=== PATIENT | female | born 1960 | race Caucasian/White ===

== ENCOUNTER 2016-04-25 09:57 | Day surgery (SDC) | payer OTHER ==
[~2016-04-25] VITALS: Ht 165.1 cm; Wt 81.0 kg
[2016-04-25] VITALS (9 sets, daily range): BP systolic 120–138; BP diastolic 43–70; PULSE 69–99; RESP 15–24; O2SAT 94–99
[~2016-04-25 09:57] MED LIST: DOCU250C2 PO; IBUP-1827 PO; Lactated Ringer's 1,000 ML IV SCH; OXYC5TAB72 PO
[2016-04-25] MEDS ORDERED: fentaNYL-PF 50 mCg/mL 2 mL Inj ONE (09:58)
[2016-04-25] MEDS ORDERED: Propofol 10,000 mCg/mL 20 mL Inj ONE (09:58)
[2016-04-25] MEDS ORDERED: Ondansetron 2 mg/mL 2 mL Inj ONE (09:58)
[2016-04-25] MEDS ORDERED: EPHEDrine/NS 5 mg/mL 5 mL Syringe ONE (09:58)
[2016-04-25] MEDS ORDERED: Dexamethasone 4 mg/mL Inj ONE (09:58)
[2016-04-25] MEDS ORDERED: Lactated Ringer's 1,000 ML IV ONE (10:49)
--- NOTE | 2016-04-25 11:29 | PCM.HPANE ---
Patient Data Date of Service: Apr 25, 2016 Surgeon Admitting Provider: Attending Provider:Hilary Phillips MD Primary Care Physician:Britney Avalos MD Other Provider:Teresa Mckay Anesthesia Reason for Visit Anal Fistula Ht/WT & BMI Height (Feet): 5 Height (Inches): 5.00 Weight (Kilograms): 80.966 Body Mass Index 29.00 Allergies Coded Allergies: Sulfa (Sulfonamide Antibiotics) (Verified Allergy, Severe, FACIAL SWELLING , 04/23/16) Past Anesthesia History Anesthesia History: Denies:: Abnormal Airway (S/P JAW RPR), Anesthesia Reactions, Malignant Hyperthermia Diabetes History Hx Diabetes?: No MRSA MRSA: No Medications Home Meds Incl Beta Delvis: No Active Scripts Docusate Sodium 250 Mg [id number] Mg PO BID PRN For Constipation #60 CAPSULE Ref 0 Prov:Marito Pan MD 04/02/16 oxyCODONE 5 Mg Tablet5 Mg PO Q4H PRN For Moderate Pain #60 TABLET Prov:Marito Pan MD 04/02/16 Reported Medications Ibuprofen 600 Mg [id number] Mg PO QID PRN For Pain Ref 0 04/01/16 Discontinued Scripts Amoxicillin/Clav K 875-125 mg (Augmentin 875-125 mg)1 Each Tablet1 Tablet PO BID 5 Days Ref 10 Prov:Marito Pan MD 04/02/16 History History of ENT Problems?: Yes HEENT History: Denies:: Abnormal Airway (S/P JAW RPR) Hx of Heart Problems?: No Cardiovascular History: Denies:: Heart Murmur Hypertension Hx of Respiratory Problem?: No Respiratory History: Denies:: Use of C-PAP Machine Hx Neurologic Problems?: Yes Neurological History: Positive for:: Headaches Hx of GI Problems?: Yes Gastrointestinal History: Positive for:: 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 Pressure Ulcers Hx Musculoskeletal Problems?: Yes Hx of Psycho/Social Problems?: No Hx Surgeries?: Yes (hernia as , carpal tunnel, trigger finger, jaw reset, I&D PERIRECTAL A) Hx Any Other Health Problems?: No Other History: Positive for:: Hospitalization (OBSV FOR PERIRECTAL ABCESS) Denies:: Cancer Endocrine Disease Thyroid Disease History Blood Transfusions: Denies:: Blood Transfuse Reaction Blood Transfusions Hx Diabetes: No Hx Alcohol Use: Yes (OCCAS)Hx Substance Use: No Smoking Status: Never Smoker Have You Smoked inLast 12 mo: No Stop/Bang S-Snoring: Do You Snore Loudly: No T-Tired: feel tired, fatigued: No O-Obsered: Observed not breath: No P-Blood Pressure: treated: No B- Body Mass Index > 35 kg/m2: No A- Age over 50: Yes N- Neck Large Circumference: No G- Gender Male: No LAZ Total Score: 1 LAZ Risk Assessment: Low Risk, <3 Yes Risk Assessment Category Category 1A: Patient has history of documented sleep apnea, and HAS NOT received any narcotic, sedative or anesthesia administration during this stay. Category 1B: Patient has history of documented sleep apnea, and HAS received any narcotic , sedative or anesthesia administration during this stay Category 2: Patient has SUSPECTED Obstructive Sleep Apnea, and HAS received any narcotic , sedative or anesthesia administration during this stay. Category 3: Patient has SUSPECTED Obstructive Sleep Apnea and HAS NOT received narcotic, sedative or anesthesia administration during this stay. Category 4: Outpatient in Procedural Areas with known sleep apnea or who screen positive for High Risk via the STOP/BANG questionnaire. Exam Exam Vital Signs Vital Signs Date Time Temp Pulse Resp B/P Pulse Ox O2 Delivery O2 Flow Rate FiO2 04/25/16 10:27 37.2 69 17 121/70 99 Room Air General Appearance: Alert, Oriented X3, Cooperative, No Acute Distress HEENT/AIRWAY: MP 2 Lungs: Clear to Auscultation, Normal Air Movement Heart: Exam Unremarkable, Regular Rate/Rhythm, No Murmurs/Rubs/Gallops Meds/Labs/Diagnostics Admission Meds Current Medications Lactated Ringer's (Lr) 1,000 ml @ ud STK-MED ONCE IV Last administered on 04/25t 10:49; Start 04/25/16 at 10:49; Stop 04/25/16 at 10:50; Status DC Plan Impression Patient chart reviewed, patient interviewed and anesthestic plan with risks, benefits, and alternatives discussed, and informed consent obtained. NPO Status: 04/24@1930, water f& black coffee @0600 ASA Physical Status: ASA2 Mod Systemic Disease Anesthetic Plan: GA Bene/Risks/Altern/Consents: Yes HP Complete Prior to Induction: Yes Leif Mendieta MD Apr 25, 2016 11:29
[2016-04-25] MEDS ORDERED: Lactated Ringer's 1,000 ML IV SCH (12:11)
[2016-04-25] MEDS ORDERED: HYDROmorphone 1 mg/mL Inj IVPUSH PRN (12:15)
[2016-04-25] MEDS ORDERED: hydrALAZINE 20 mg/mL Inj IVPUSH PRN (12:15)
[2016-04-25] MEDS ORDERED: MetoCLOpramide 5 mg/mL 2 mL Inj IVPUSH PRN (12:15)
[2016-04-25] MEDS ORDERED: Ondansetron 2 mg/mL 2 mL Inj IVPUSH PRN (12:15)
[2016-04-25] MEDS ORDERED: Phenylephrine 10,000 mCg/mL Inj IVPUSH PRN (12:15)
[2016-04-25] MEDS ORDERED: Atropine 0.4 mg/mL Inj IVPUSH PRN (12:15)
[2016-04-25] MEDS ORDERED: EPHEDrine Sulfate 50 mg/mL Inj IVPUSH PRN (12:15)
[2016-04-25] MEDS ORDERED: Labetalol 5 mg/mL 4 mL Inj IV PRN (12:15)
[2016-04-25] MEDS ORDERED: Bupivacaine Liposome 1.3% 20 mL Inj ONE (12:36)
[2016-04-25] MEDS ORDERED: Bupivacaine Liposome 1.3% 20 mL Inj INFILTRATE ONE (12:39)
[2016-04-25] MEDS ORDERED: Bupivacaine-MPF 0.5% W/EPI 30 mL Inj INFILTRATE ONE (12:40)
--- NOTE | 2016-04-25 12:51 | PCM.ANEP1 ---
Post Anesthesia Phase 1 PACU Phase 1 Assessment Date of Service: Apr 25, 2016 Vital Signs 36.7 138/47 96 13 99% RA Anesthetic Administered: GA Level of Alertness: Awake, talking MATOS's with Equal Strength: Yes Pain: No Nausea or Vomiting: No Oxygen Delivery: Room Air Lungs: Clear to Auscultation, Normal Air Movement Leif Mendieta MD Apr 25, 2016 12:50
[2016-04-25] MEDS ORDERED: oxyCODONE-Acetamin 5-325 mg Tablet PO PRN (12:55)
--- NOTE | 2016-04-25 13:03 | PCM.SURGOP ---
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 Examination under anesthesia 2. Incision and drainage of complex horseshoe ischiorectal abscess 3. Non-cutting seton placement Surgeon and Paving Crew Foreman: Surgeon: Hilary Phillips M.D. Assistants: Yulisa Gonzalez PA-C; Rosalinda Dexter MS 3 Indication for Procedure This is a 55-year-old woman who presented with a perirectal abscess back in March. She underwent incision and drainage in the operating room at that time. It recurred and progressed to a fistula in ano, with ongoing purulent drainage. Therefore examination under anesthesia was indicated. Findings: At the left posterolateral position was a 0.5 cm opening with some hypergranulation tissue to a large cavity, approximately 12 cm in depth as measured by a lacrimal duct probe, with a connection to the posterior rectal canal, 2 cm proximal to the dentate line. The cavity extended to approximately 1 cm across the midline. Procedure Details The patient was brought to the operating room placed in supine position. General anesthesia was induced. A warming blanket was placed. She was repositioned into high lithotomy position. The operative field was prepped and draped in sterile fashion. The presurgical checklist was used to confirm the correct patient, procedure, site, and side. A digital rectal examination was performed. At the posterior position, 2 cm proximal to the dentate line was opening to an abscess cavity, and 2 cm from the dentate line on the perianal skin was not opening to it as well, confirming the presence of a fistula. This was probed with a lacrimal duct probe. The abscess cavity extended to 1 cm across the midline to the right side. With respect to the sphincter complex and levators, it was in an ischiorectal position. There is very minimal pus as the patient has had ongoing purulent drainage. Hydrogen peroxide was used to confirm the connection between the rectal mucosa and the skin. The lacrimal duct probe was used to find the connection to the rectal canal, and a silk tie was tied to it and brought through. A vessel loop was tied to this and the silk was pulled out. The tonsil loop was then tied to itself to create a noncutting seton. The perianal skin opening was opened to a length of 1.5 cm to facilitate drainage. Hemostasis was achieved. 30 mL of half percent Marcaine were injected, followed by 20 mL of liposomal bupivacaine, for postoperative analgesia An ABD pad was placed. The patient was awakened from general anesthesia and taken to the postoperative care unit in good condition. Complications There were no periprocedural complications identified. Surgical Specimen Removed: No Specimen sent to Pathology: No Anesthetic Plan: GA Grafts, Implants: None Output, Estimated Blood Loss: 0 (ml) Blood Administration during cabrera: No Hilary Phillips MD Apr 25, 2016 13:03
[2016-04-25] MEDS: fentaNYL-PF 50 mCg/mL 2 mL Inj IVPUSH PRN ×2 (13:13→13:20)
[2016-04-25] MEDS: Lactated Ringer's 500 ML IV PRN ×2 (13:24→13:26)
--- NOTE | 2016-04-25 14:43 | PCM.ANEP2 ---
Post Anesthesia Evaluation ASA/CMS Post Anesthesia Date of Service: Apr 25, 2016 VS in Patient's Normal Range?: Yes Resp Stable; Airway Patent?: Yes CV Function & Hydration Stable: Yes Mental Status Recovered?: Yes Pain control Satisfactory?: Yes N/V Control Satisfactory?: Yes Leif Mendieta MD Apr 25, 2016 14:43
== END 2016-04-25 23:59 | disposition home or self-care (01) ==
LOC: SAS 09:57
PROVIDERS: ATTEND Surgery
DX: K61.3 Ischiorectal abscess (principal)
CPT/HCPCS: 46060; J1100; J2250; J2405; J7120

== ENCOUNTER 2016-06-26 08:47 | Day surgery (SDC) | payer OTHER ==
[2016-06-26] VITALS (9 sets, daily range): BP systolic 98–133; BP diastolic 55–94; PULSE 63–81; RESP 12–24; O2SAT 96–100
[~2016-06-26] VITALS: Ht 165.1 cm; Wt 80.4 kg
[~2016-06-26 08:47] MED LIST changes: -DOCU250C2 PO; -IBUP-1827 PO; -OXYC5TAB72 PO
[2016-06-26] MEDS ORDERED: fentaNYL-PF 50 mCg/mL 2 mL Inj ONE (08:48)
[2016-06-26] MEDS ORDERED: Ondansetron 2 mg/mL 2 mL Inj ONE (08:48)
[2016-06-26] MEDS ORDERED: Dexamethasone 4 mg/mL Inj ONE (08:48)
[2016-06-26] MEDS ORDERED: Propofol 10,000 mCg/mL 20 mL Inj ONE (08:48)
[2016-06-26] MEDS ORDERED: Lactated Ringer's 1,000 ML IV ONE (08:58)
--- NOTE | 2016-06-26 11:08 | PCM.HPANE ---
Patient Data Date of Service: Jun 26, 2016 Surgeon Admitting Provider: Attending Provider:Hilary Phillips MD Primary Care Physician:Britney Avalos MD Other Provider:Teresa Mckay Anesthesia Reason for Visit Perirectal Abscess Ht/WT & BMI Height (Feet): 5 Height (Inches): 5 Weight (Kilograms): 80.4 Body Mass Index 29.00 Allergies Coded Allergies: Sulfa (Sulfonamide Antibiotics) (Verified Allergy, Severe, FACIAL SWELLING , 04/23/16) Past Anesthesia History Anesthesia History: Denies:: Abnormal Airway, Anesthesia Reactions, Malignant Hyperthermia Diabetes History Hx Diabetes?: No MRSA MRSA: No Medications Discontinued Reported Medications Ibuprofen 600 Mg [id number] Mg PO QID PRN For Pain Ref 0 04/01/16 Discontinued Scripts Docusate Sodium 250 Mg [id number] Mg PO BID PRN For Constipation #60 CAPSULE Ref 0 Prov:Marito Pan MD 04/02/16 oxyCODONE 5 Mg Tablet5 Mg PO Q4H PRN For Moderate Pain #60 TABLET Prov:Marito Pan MD 04/02/16 History History of ENT Problems?: Yes HEENT History: Denies:: Abnormal Airway Hearing Problem Hx of Heart Problems?: Yes Cardiovascular History: Positive for:: Heart Murmur (more than 20 years ago, repeat echo scheduled end of june) Denies:: AICD Hypertension Pacemaker Hx of Respiratory Problem?: No Respiratory History: Denies:: Asthma COPD Emphysema Oxygen Administration Pneumonia Tuberculosis Use of C-PAP Machine Use of Inhalers / NEBS Hx Neurologic Problems?: Yes Neurological History: Positive for:: Headaches Denies:: CVA Multiple Sclerosis Parkinson's Disease Seizures Hx of GI Problems?: Yes Gastrointestinal History: Positive for:: 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 Skin History: Denies:: History Skin Disorders? Pressure Ulcers Hx Musculoskeletal Problems?: Yes Hx of Psycho/Social Problems?: No Hx Surgeries?: Yes (hernia as infant, carpal tunnel, trigger finger, jaw reset, I&D PERIRECTAL A) Hx Any Other Health Problems?: Yes Other History: Positive for:: Hospitalization Denies:: Cancer Endocrine Disease Thyroid Disease History Blood Transfusions: Denies:: Blood Transfuse Reaction Blood Transfusions Hx Diabetes: No Hx Alcohol Use: YesAlcoholic Drinks Per Day: occasionalHx Substance Use: No Smoking Status: Never Smoker Have You Smoked inLast 12 mo: No Stop/Bang S-Snoring: Do You Snore Loudly: No T-Tired: feel tired, fatigued: No O-Obsered: Observed not breath: No P-Blood Pressure: treated: No B- Body Mass Index > 35 kg/m2: No A- Age over 50: Yes N- Neck Large Circumference: No G- Gender Male: No LAZ Total Score: 1 Risk Assessment Category Category 1A: Patient has history of documented sleep apnea, and HAS NOT received any narcotic, sedative or anesthesia administration during this stay. Category 1B: Patient has history of documented sleep apnea, and HAS received any narcotic , sedative or anesthesia administration during this stay Category 2: Patient has SUSPECTED Obstructive Sleep Apnea, and HAS received any narcotic , sedative or anesthesia administration during this stay. Category 3: Patient has SUSPECTED Obstructive Sleep Apnea and HAS NOT received narcotic, sedative or anesthesia administration during this stay. Category 4: Outpatient in Procedural Areas with known sleep apnea or who screen positive for High Risk via the STOP/BANG questionnaire. Exam Exam Vital Signs Vital Signs Date Time Temp Pulse Resp B/P Pulse Ox O2 Delivery O2 Flow Rate FiO2 06/26/16 09:08 36.2 73 16 110/67 97 Room Air General Appearance: Alert, Oriented X3, Cooperative HEENT/AIRWAY: MP 2 Lungs: Clear to Auscultation Heart: Exam Unremarkable, Regular Rate/Rhythm Meds/Labs/Diagnostics Admission Meds Current Medications Lactated Ringer's (Lr) 1,000 ml @ ud STK-MED ONCE IV Last administered on 06/26t 08:58; Start 06/26/16 at 08:58; Stop 06/26/16 at 08:59; Status DC Plan Impression Patient chart reviewed, patient interviewed and anesthestic plan with risks, benefits, and alternatives discussed, and informed consent obtained. NPO Status: [id number] clears ASA Physical Status: ASA2 Mod Systemic Disease Anesthetic Plan: GA Bene/Risks/Altern/Consents: Yes HP Complete Prior to Induction: Yes Brad Roberts MD Jun 26, 2016 10:04
[2016-06-26] MEDS ORDERED: Lactated Ringer's 1,000 ML IV SCH (11:09)
[2016-06-26] MEDS ORDERED: Lactated Ringer's 500 ML IV PRN (11:09)
[2016-06-26] MEDS ORDERED: hydrALAZINE 20 mg/mL Inj IVPUSH PRN (11:10)
[2016-06-26] MEDS ORDERED: Ondansetron 2 mg/mL 2 mL Inj IVPUSH PRN (11:10)
[2016-06-26] MEDS ORDERED: HYDROmorphone 1 mg/mL Inj IVPUSH PRN (11:10)
[2016-06-26] MEDS ORDERED: Atropine 0.4 mg/mL Inj IVPUSH PRN (11:10)
[2016-06-26] MEDS ORDERED: Phenylephrine 10,000 mCg/mL Inj IVPUSH PRN (11:10)
[2016-06-26] MEDS ORDERED: fentaNYL-PF 50 mCg/mL 2 mL Inj IVPUSH PRN (11:10)
[2016-06-26] MEDS ORDERED: Labetalol 5 mg/mL 4 mL Inj IV PRN (11:10)
[2016-06-26] MEDS ORDERED: MetoCLOpramide 5 mg/mL 2 mL Inj IVPUSH PRN (11:10)
[2016-06-26] MEDS ORDERED: EPHEDrine Sulfate 50 mg/mL Inj IVPUSH PRN (11:10)
[2016-06-26] MEDS ORDERED: Bupivacaine Liposome 1.3% 20 mL Inj ONE (11:28)
[2016-06-26] MEDS ORDERED: Bupivacaine Liposome 1.3% 20 mL Inj INFILTRATE ONE (11:35)
[2016-06-26] MEDS ORDERED: Bupivacaine-MPF 0.5% W/EPI 30 mL Inj INFILTRATE ONE (11:35)
[2016-06-26] MEDS ORDERED: oxyCODONE-Acetamin 5-325 mg Tablet PO PRN (11:55)
--- NOTE | 2016-06-26 13:22 | OP ---
[address] [address] OPERATIVE REPORT PATIENT: TANNER CAMPOS : 1960 MR#: [id number] ADMIT: 06/26/2016 JOB ID: [id number] DATE OF SURGERY: 06/26/2016 PREOPERATIVE DIAGNOSIS(ES): Complex ischiorectal horseshoe abscess. POSTOPERATIVE DIAGNOSIS(ES): Complex ischiorectal abscess. PROCEDURE PERFORMED: Repeat incision and drainage of complex perirectal abscess. SURGEON: Hilary Phillips MD. HEMATOLOGIST ONCOLOGIST: CELENA Subramanian. FINDINGS: 1. Complex ischiorectal horseshoe abscess had regressed since the previous incision and drainage, and was only involving the left buttock. 2. Previous seton was removed and [place] drain was placed as noted below. HISTORY OF PRESENT ILLNESS: This is a 55-year-old woman with a complex perirectal abscess. She originally presented in March and underwent incision and drainage, but her symptoms recurred. In early April 2016, I performed an incision and drainage of what I found to be a complex ischiorectal horseshoe abscess. I left a vessel loop in place at the 5 o'clock position, with 12 o'clock being anterior, in lithotomy position. This vessel loop was placed as a noncutting seton in order to facilitate drainage through a fistula which extended 1 cm proximal to the dentate line. She continued to have occasional recurrence of pressure with subsequent purulent drainage. Therefore, an MRI was performed and showed a persistent abscess cavity. For that reason, she was brought to the operating room for repeat incision and drainage. DESCRIPTION OF PROCEDURE: The patient was brought to the operating room and placed in supine position. General anesthesia was induced. A warming blanket was placed. She was placed in high lithotomy position. The operative field was prepped and draped in a sterile fashion. A pause was performed to confirm the correct patient, procedure, and site. Exterior examination revealed a vessel loop in place at the 5 o'clock position while the patient was in lithotomy. Using retractors, internal examination of the rectal mucosa revealed small circumferential internal hemorrhoids and a persistent fistula at the location of the seton at 5 o'clock. At the exterior location of the seton, a hemostat was used for exploration, and there was an abscess cavity 3 cm in length extending posteriorly in the left buttock. It was 1 cm in width. A counterincision was therefore made 3 cm distal to the previously placed seton in order to fully drain this abscess cavity. A 1/4-inch Alexandra drain was threaded through this and was tied to itself using a silk stitch. The previously placed seton was removed, as that region had filled in with healing tissue. The abscess cavity was no longer extending to the right buttock as it had been noted to do during the previous operation. Then, 0.5% Marcaine with epinephrine was injected around the surgical site. Then, 20 mL of liposomal bupivacaine was injected around the surgical site. Hemostasis was achieved after the cavity was copiously irrigated with normal saline. The patient was then awakened from general anesthesia and taken to the postoperative care unit in good condition. SPECIMENS: Purulent fluid from the abscess cavity, sent for culture. COMPLICATIONS: None. ESTIMATED BLOOD LOSS: 5 mL. MTDD
--- NOTE | 2016-06-26 14:10 | PCM.ANEP2 ---
Post Anesthesia Evaluation ASA/CMS Post Anesthesia Date of Service: Jun 26, 2016 VS in Patient's Normal Range?: Yes Resp Stable; Airway Patent?: Yes CV Function & Hydration Stable: Yes Mental Status Recovered?: Yes Pain control Satisfactory?: Yes N/V Control Satisfactory?: Yes Brad Roberts MD Jun 26, 2016 14:10
--- NOTE | 2016-06-26 14:10 | PCM.ANEP1 ---
Post Anesthesia Phase 1 PACU Phase 1 Assessment Date of Service: Jun 26, 2016 Vital Signs Vital Signs Date Time Temp Pulse Resp B/P Pulse Ox O2 Delivery O2 Flow Rate FiO2 06/26/16 13:20 69 16 98/55 98 Room Air 06/26/16 12:39 37.2 63 16 119/57 97 Room Air 06/26/16 12:27 74 20 123/65 98 Room Air 06/26/16 12:17 81 24 133/66 98 Room Air 06/26/16 12:09 79 20 110/56 96 Room Air 06/26/16 12:00 78 18 119/94 100 Simple Mask 10 06/26/16 11:55 71 12 103/57 100 Simple Mask 10 06/26/16 11:52 36.8 75 13 108/59 100 Simple Mask 10 06/26/16 09:08 36.2 73 16 110/67 97 Room Air Anesthetic Administered: GA Level of Alertness: Awake, talking MATOS's with Equal Strength: Yes Pain: No Nausea or Vomiting: No Oxygen Delivery: Simple Mask Brad Roberts MD Jun 26, 2016 14:09
== END 2016-06-26 23:59 | disposition home or self-care (01) ==
LOC: SAS 08:47
PROVIDERS: ATTEND Surgery
DX: K61.1 Rectal abscess (principal); R01.1 Cardiac murmur, unspecified
CPT/HCPCS: 46040; 87070; 87075; 87205; J1100; J2250; J2405; J3010; J7120

== ENCOUNTER 2016-10-09 15:01 | Day surgery (SDC) | payer OTHER ==
[2016-10-09] VITALS (11 sets, daily range): BP systolic 94–124; BP diastolic 55–82; PULSE 66–79; RESP 13–18; O2SAT 95–100
[~2016-10-09] VITALS: Ht 172.7 cm; Wt 79.0 kg
[~2016-10-09 15:01] MED LIST changes: +LEVO750T39 PO; +METR500T19 PO
[2016-10-09] MEDS ORDERED: Ondansetron 2 mg/mL 2 mL Inj ONE (15:02)
[2016-10-09] MEDS ORDERED: Propofol 10,000 mCg/mL 20 mL Inj ONE (15:02)
[2016-10-09] MEDS ORDERED: Dexamethasone 4 mg/mL Inj ONE (15:02)
[2016-10-09] MEDS ORDERED: fentaNYL-PF 50 mCg/mL 2 mL Inj ONE (15:02)
[2016-10-09] MEDS ORDERED: Lidocaine PF 1% 30 mL Inj ONE (15:02)
[2016-10-09] MEDS ORDERED: Lactated Ringer's 1,000 ML IV ONE (15:42)
[2016-10-09] MEDS ORDERED: fentaNYL-PF 50 mCg/mL 2 mL Inj IVPUSH PRN (17:10)
[2016-10-09] MEDS ORDERED: Dexamethasone 4 mg/mL Inj IVPUSH PRN (17:10)
[2016-10-09] MEDS ORDERED: HYDROmorphone 1 mg/mL Inj IVPUSH PRN (17:10)
[2016-10-09] MEDS ORDERED: EPHEDrine Sulfate 50 mg/mL Inj IVPUSH PRN (17:10)
[2016-10-09] MEDS ORDERED: Ondansetron 2 mg/mL 2 mL Inj IVPUSH PRN (17:10)
[2016-10-09] MEDS ORDERED: Phenylephrine 10,000 mCg/mL Inj IVPUSH PRN (17:10)
[2016-10-09] MEDS ORDERED: Lactated Ringer's 1,000 ML IV SCH (17:10)
[2016-10-09] MEDS ORDERED: MetoCLOpramide 5 mg/mL 2 mL Inj IVPUSH PRN (17:10)
[2016-10-09] MEDS ORDERED: Lactated Ringer's 500 ML IV PRN (17:10)
--- NOTE | 2016-10-09 17:10 | PCM.HPANE ---
Patient Data Date of Service: Oct 09, 2016 ([id number]) Surgeon Admitting Provider: Attending Provider:Hilary Phillips MD Primary Care Physician:Britney Avalos MD Other Provider:Teresa Mckay Anesthesia Reason for Visit Perirectal Abscess Ht/WT & BMI Height (Feet): 5 Height (Inches): 8.00 Weight (Kilograms): 79.000 Body Mass Index 26.00 Allergies Coded Allergies: Sulfa (Sulfonamide Antibiotics) (Verified Allergy, Severe, FACIAL SWELLING , 10/03/16) Past Anesthesia History Anesthesia History: Denies:: Abnormal Airway, Anesthesia Reactions, Malignant Hyperthermia Diabetes History Hx Diabetes?: No MRSA MRSA: No Medications Home Meds Incl Beta Delvis: No Reported Medications Metronidazole 500 Mg [id number] Mg PO TID Ref 0 10/03/16 Levofloxacin 750 Mg [id number] Mg PO DAILY 10/03/16 History History of ENT Problems?: Yes HEENT History: Denies:: Abnormal Airway Hearing Problem TMJ (past hx of jaw repair) Denture Type: None Teeth Condition: Within Normal Limits Hx of Heart Problems?: Yes Cardiovascular History: Positive for:: Heart Murmur (soft decrescendo systolic echo 06/2016 ef 60-65%) Valvular Heart Disease (MOD MR) Denies:: AICD Hypertension Pacemaker Hx of Respiratory Problem?: No Respiratory History: Denies:: Asthma COPD Emphysema Oxygen Administration Pneumonia Tuberculosis Use of C-PAP Machine Hx Neurologic Problems?: Yes Neurological History: Positive for:: Headaches Denies:: CVA Multiple Sclerosis Parkinson's Disease Seizures Hx of GI Problems?: Yes Other GI Pertinent History: S/P I&D PERIRECTAL ABCESS/SETON PLCMT X3,HERNIA RPR Hx of Problems?: No Genitourinary History: Positive for:: Urinary Tract Infection (remote hx of) Denies:: Kidney Stones Female Hx: Denies:: Currently Problems with Breasts? Skin History: Denies:: History Skin Disorders? Pressure Ulcers Hx Musculoskeletal Problems?: Yes Hx of Psycho/Social Problems?: No Hx Surgeries?: Yes (hernia as , carpal tunnel, trigger finger, jaw reset, I&D PERIRECTAL A) Hx Any Other Health Problems?: Yes Other History: Positive for:: Hospitalization Denies:: Cancer Endocrine Disease Thyroid Disease History Blood Transfusions: Denies:: Blood Transfuse Reaction Blood Transfusions Hx Diabetes: No Hx Alcohol Use: Yes (OCCAS)Hx Substance Use: No Smoking Status: Never Smoker Have You Smoked inLast 12 mo: No Stop/Bang S-Snoring: Do You Snore Loudly: No T-Tired: feel tired, fatigued: Yes O-Obsered: Observed not breath: No P-Blood Pressure: treated: No B- Body Mass Index > 35 kg/m2: No A- Age over 50: Yes N- Neck Large Circumference: No G- Gender Male: No LAZ Total Score: 2 Risk Assessment Category Category 1A: Patient has history of documented sleep apnea, and HAS NOT received any narcotic, sedative or anesthesia administration during this stay. Category 1B: Patient has history of documented sleep apnea, and HAS received any narcotic , sedative or anesthesia administration during this stay Category 2: Patient has SUSPECTED Obstructive Sleep Apnea, and HAS received any narcotic , sedative or anesthesia administration during this stay. Category 3: Patient has SUSPECTED Obstructive Sleep Apnea and HAS NOT received narcotic, sedative or anesthesia administration during this stay. Category 4: Outpatient in Procedural Areas with known sleep apnea or who screen positive for High Risk via the STOP/BANG questionnaire. Exam Exam Vital Signs Vital Signs Date Time Temp Pulse Resp B/P Pulse Ox O2 Delivery O2 Flow Rate FiO2 10/09/16 15:30 36.5 70 18 124/82 97 Room Air General Appearance: Alert, Oriented X3, Cooperative HEENT/AIRWAY: MP 1 Lungs: Clear to Auscultation Heart: Exam Unremarkable Meds/Labs/Diagnostics Admission Meds Current Medications Lactated Ringer's (Lr) 1,000 ml @ ud STK-MED ONCE IV Last administered on 10/09t 15:42; Start 10/09/16 at 15:42; Stop 10/09/16 at 15:43; Status DC Plan Impression Patient chart reviewed, patient interviewed and anesthestic plan with risks, benefits, and alternatives discussed, and informed consent obtained. NPO per Anesth. Guidelines: Yes ASA Physical Status: ASA2 Mod Systemic Disease Anesthetic Plan: GA Bene/Risks/Altern/Consents: Yes HP Complete Prior to Induction: Yes Tim Travis MD Oct 09, 2016 17:10
[2016-10-09] MEDS ORDERED: Bupivacaine-MPF 0.25%/EPI 30 mL Inj INFILTRATE ONE (17:39)
--- NOTE | 2016-10-09 18:02 | PCM.ANEP1 ---
Post Anesthesia PACU Phase 1 Assessment Vital Signs 37.2, 76, 12, 100%, 110/56 Vital Signs Date Time Temp Pulse Resp B/P Pulse Ox O2 Delivery O2 Flow Rate FiO2 10/09/16 15:30 36.5 70 18 124/82 97 Room Air Anesthetic Administered: GA Level of Alertness: Awake, talking MATOS's with Equal Strength: Yes Pain: No Pain Scale Score: 0 Nausea or Vomiting: Yes CV Function & Hydration Stable: Yes Airway Device: none Oxygen Delivery: Simple Mask Lungs: Clear to Auscultation Dermatome Level: Full Sensation Summary uneventful GA PACU Phase 2 Assessment Complications: No Follow up Care: No Patient Instructions Provided: N/A Tim Travis MD Oct 09, 2016 18:02
[2016-10-09] MEDS ORDERED: oxyCODONE-Acetamin 5-325 mg Tablet PO PRN (18:05)
[2016-10-09] MEDS ORDERED: AMOX-366 PO (18:07)
--- NOTE | 2016-10-09 19:33 | OP ---
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 PROCEDURE PERFORMED: Incision and drainage of ischiorectal posterior left-sided perirectal abscess with non-cutting seton placement. SURGEON: Hilary Phillips MD. HISTORY OF PRESENT ILLNESS: This is a 55-year-old woman who underwent incision and drainage of 80 a perirectal abscess at the end of 2015 by my partner, which recurred. Several weeks later, I performed a repeat incision and drainage of the same and encountered a large ischiorectal horseshoe abscess. She underwent several months of therapy and repeat trips to the operating room, including placement of seton and antibiotics. Ultimately, approximately two months ago, the seton was removed and she was off antibiotics and stable. However, in the past several weeks she has began having small amounts of purulent drainage again. Therefore, repeat exploration in the operating room, was indicated. FINDINGS: The abscess cavity is similar to the location of three months ago and her previous seton site was patent, with granulation tissue in place. The site of the most recent seton and the new seton which was placed today are located at 4 o'clock, with 12 o'clock being anterior, 2 cm distal to the dentate line; and at 5:30 o'clock, 4 cm distal to the dentate line. DESCRIPTION OF PROCEDURE: The patient was brought to the operating room and placed in supine position. General anesthesia was induced. She was repositioned into high lithotomy. A warming blanket was placed. The operative field was prepped and draped in sterile fashion. A pause was performed to confirm the correct patient, procedure, and site. A digital rectal examination was performed and was normal. Exploration of the perianal tissues revealed an abscess cavity at 5 o'clock, with 12 o'clock being anterior. The seton sites were still patent and had heaped up granulation tissue, which was gently debrided off. The abscess cavity was explored and did not traverse across the posterior midline. The cavity itself was approximately 4 cm x 2 cm in size. The granulation tissue was ablated with cautery as well. A blue vessel loop was then placed in and out of the previous seton sites, with locations as noted above in findings. There was no fistula to the rectal mucosa (she had a seton there in the past, but it had been removed during a prior procedure). Local anesthetic was infused at the sites of the seton. A pad was placed. The patient was awakened from general anesthesia and taken to the postoperative care unit in good condition. SPECIMENS: Purulent tissue from within the abscess cavity was sent for culture. COMPLICATIONS: None. ESTIMATED BLOOD LOSS: 5 mL.
== END 2016-10-09 23:59 | disposition home or self-care (01) ==
LOC: SAS 15:01
PROVIDERS: ATTEND Surgery
DX: K61.1 Rectal abscess (principal); I38 Endocarditis, valve unspecified; R01.1 Cardiac murmur, unspecified
CPT/HCPCS: 46020; 87070; 87075; 87186; 87205; J1100; J1885; J2250; J2405; J3010; J7120